=== PATIENT | male | born 1975 | race Caucasian/White ===

== ENCOUNTER 2020-01-10 18:56 | Outpatient (CLI) | payer OTHER, SELFPAY ==
--- NOTE | ~2020-01-10 | XR_ITS ---
EXAMINATION: XR knee LT min 4V DATE: 01/10/2020 19:19 INDICATION: Left knee pain TECHNIQUE: Four views of the left knee were obtained. COMPARISON: None. FINDINGS: Alignment is normal. No fracture or osteochondral lesion. There is mild tricompartmental os teoarthritis characterized by tiny marginal osteophytes. No joint effusion/synovitis. Soft tissues a re unremarkable. IMPRESSION: 1. No acute osseous abnormality. Reviewed, dictated and finalized at location A.
--- NOTE | ~2020-01-10 | XR_ITS ---
EXAMINATION: XR knee RT min 4V DATE: 01/10/2020 19:20 INDICATION: Right knee pain TECHNIQUE: Four views of the right knee were obtained. COMPARISON: None. FINDINGS: Alignment is normal. No fracture or osteochondral lesion. There is mild tricompartmental os teoarthritis characterized by tiny marginal osteophytes. No joint effusion/synovitis. Soft tissues a re unremarkable. IMPRESSION: 1. No acute osseous abnormality. Reviewed, dictated and finalized at location A.
== END 2020-01-10 18:57 | disposition home or self-care (01) ==
PROVIDERS: PCP Family Medicine; Visit Provider Physician Assistant Medical
DX: M25.562 Pain in left knee (principal); M25.561 Pain in right knee
CPT/HCPCS: 73564

== ENCOUNTER → 2020-04-05 09:55 | Outpatient (CLI) | payer OTHER, SELFPAY ==
--- NOTE | ~2020-04-05 | MR_ITS ---
. EXAMINATION: MR lumbar spine wo con DATE: 04/05/2020 10:33 INDICATION: Lumbar radiculopathy. Low back pain. TECHNIQUE: Magnetic resonance imaging (MRI) of the lumbar spine was performed without intravenous con trast. Sequences included sagittal T2-weighted FSE, sagittal T2-weighted FS FSE, sagittal T1-weighted FSE, and axial T2-weighted FSE. COMPARISON: Lumbar spine radiographs 09/29/2007 FINDINGS: Bone alignment is normal. Vertebral body heights are normal. There is severely decreased di sc height at L5-S1. The distal spinal cord signal intensity is normal. The conus medullaris is at L1. The following disc levels are specifically discussed: L1-L2: There is a left foraminal protrusion. There is mild bilateral facet joint osteoarthritis. Ther e is mild left neural foraminal stenosis. There is no central canal stenosis. L2-L3: The disc is mildly bulging. There is mild bilateral facet joint osteoarthritis. There is mild bilateral neural foraminal stenosis. There is no central canal stenosis. L3-L4: The disc is mildly bulging. There is moderate bilateral facet joint osteoarthritis. There is m ild bilateral neural foraminal stenosis. There is no central canal stenosis. L4-L5: The disc is bulging with superimposed right central extrusion. There is mild bilateral facet j oint osteoarthritis. There is mild bilateral neural foraminal stenosis. There is mild central canal s tenosis. L5-S1: The disc is bulging and has an annular fissure. There is mild right facet joint osteoarthritis . There is mild bilateral neural foraminal stenosis. There is mild central canal stenosis. IMPRESSION: 1. Severe lower lumbar spondylosis. Reviewed, dictated and finalized at location A.
== END ==
PROVIDERS: PCP Family Medicine; Visit Provider Nurse Practitioner Adult Health
DX: M54.16 Radiculopathy, lumbar region (principal); M47.816 Spondylosis without myelopathy or radiculopathy, lumbar region
CPT/HCPCS: 72148

== ENCOUNTER 2024-01-02 12:18 | Emergency (ER) | payer OTHER, SELFPAY ==
[2024-01-02] VITALS (13 sets, daily range): BP systolic 114–136; BP diastolic 54–88; PULSE 61–78; RESP 12–23; TEMP 36.7; O2SAT 93–100
--- NOTE | ~2024-01-02 | XR_ITS ---
EXAMINATION: XR chest 2V DATE: 01/02/2024 12:44 INDICATION: Chest pain, soreness and 2 weeks of fluttering TECHNIQUE: PA and lateral views of the chest were obtained. COMPARISON: None FINDINGS: The lungs are clear with no focal airspace opacities, pulmonary edema, pleural effusion or pneumothor ax. The cardiomediastinal silhouette is normal. Mild thoracic spondylosis. IMPRESSION: 1. No acute cardiopulmonary disease. Reviewed, dictated and finalized at location A.
--- NOTE | 2024-01-02 12:24 | ECG_ITS ---
Test Date: 2024-01-02 12:27:02 Measurements Intervals [place] Rate: 74 P: 60 [place]: 146 QRS: 1 QRSD: 84 T: 37 QT: 341 QTc: 379 Interpretive Statements SINUS RHYTHM WITHIN NORMAL LIMITS No previous ECG available for comparison Electronically Signed On 01-02-2024 15:29:22 CDT by Harley Jeronimo M.D.
[2024-01-02 12:47] LABS: Basophils Percent Auto 0.3 % (0.2-1.2); Eosinophils Absolute Auto 0.1 K/mm3 (0-0.3); Eosinophils Percent Auto 0.6 % (0-4.4); Hematocrit 46.7 % (42.0-52.0); Hemoglobin 16.5 g/dL (14.0-18.0); Immature Granulocyte Absolute 0.03 K/mm3 (0.00-0.031); Immature Granulocyte Percent A 0.3 % (0-0.5); Lymphocytes Absolute Auto 1.59 K/mm3 (0.9-3.2); Lymphocytes Percent Auto 17.5 % (18.3-44.2); Mean Corpuscular HGB Conc 35.3 g/dl (32-36); Mean Corpuscular Hemoglobin 31.7 pg (26-34); Mean Corpuscular Volume 89.6 fl (80-100); Monocytes Absolute Auto 0.7 K/mm3 (0.1-0.6); Monocytes Percent Auto 7.6 % (2.6-8.5); Neutrophils Absolute Auto 6.7 K/mm3 (1.3-6.7); Neutrophils Percent Auto 73.7 % (45.5-73.1); Platelet Count Result 240 k/mm3 (150-375); Red Blood Count 5.21 M/mm3 (4.6-6.20); Red Cell Distribution Width 12.2 % (11.5-14.5); White Blood Count 9.1 K/mm3 (4.5-10.0)
[2024-01-02] MEDS: ASPIRIN 81 MG CHEWABLE TABLET 324 MG PO (12:52)
[2024-01-02 13:01] LABS: Prothrombin Time 13.4 Seconds (11.1-14.7)
[2024-01-02 13:10] LABS: Alanine Aminotransferase 45 U/L (6-50); Albumin Level 4.9 g/dL (3.5-5.1); Alkaline Phosphatase 61 U/L (38-126); Anion Gap 10 mmol/L (4-12); Aspartate Amino Transferase 37 U/L (17-59); Bilirubin,Total 1.2 mg/dL (0.2-1.3); Blood Urea Nitrogen 19 mg/dL (9-20); Calcium 9.7 mg/dL (8.4-10.2); Carbon Dioxide 27 mmol/L (22-30); Chloride 102 mmol/L (98-107); Estimated CRCL calculation 69 ml/min; Estimated Glomerular Filt Rate 58; Glucose 88 mg/dL (65-110); Lipase 87 U/L (23-300); Potassium 4.1 mmol/L (3.4-5.0); Sodium 139 mmol/L (137-145)
[2024-01-02 13:14] LABS: Troponin I < 0.012 ng/mL (0.000-0.034)
--- NOTE | 2024-01-02 14:08 | ED.CHESTPAIN ---
HPI - Chest Pain General Chief Complaint: Chest Pain Stated Complaint: chest pain Time Seen by Provider: 01/02/24 12:55 History of Present Illness HPI narrative: 48-year-old male presents emergency department for evaluation of intermittent heart palpitations. Patient states over the course of the last 10 years he has been having intermittent heart palpitations that had typically been infrequent. Patient states he does have a high stress job, and did notice symptoms started after having a stressful vacation. Patient states over the course of the last 2 weeks he has had intermittent heart palpitations. Patient describes them as extra beat thanks return to normal that he has another extra palpitation. Denies any associated lightheadedness dizziness. Patient denies any sustained heart palpitations. Patient states he drinks very little caffeine and today. Patient states he does not drink alcohol. Patient denies any energy drinks or stimulants. Patient does take a protein drink after working out but states this is not caffeinated. Patient does state he works out frequently and denies any chest pain with exertion. Related Data Home Medications Medication Instructions Recorded Confirmed No Home Medications 08/15/19 01/16/20 Allergies Allergy/AdvReac Type Severity Reaction Status Date / Time No Known Allergies Allergy Verified 01/02/24 12:49 Review of Systems Review of Systems: All systems reviewed & are unremarkable except as noted in HPI and below PMFSH Family History Family History (Updated 05/23/18 @ 09:39 by DOCTOR UNKNOWN) Father Diabetes mellitus Hypertension Family history of elevated blood lipids Mother Hypertension Family history of elevated blood lipids Social History Social History Smoking status: Never smoker Alcohol intake: never Exam Narrative: APPEARANCE: Well appearing, no pain, no distress, well-nourished. HEAD: normocephalic, atraumatic. EYES: PERRLA/EOMI, conjunctivae clear. NOSE: Normal no drainage EARS:TMS clear with good light reflex. THROAT: Pharynx clear, no exudate. NECK: Supple. No adenopathy, no masses. RESPIRATORY: Airway patent, respirations nonlabored. Clear to auscultation bilaterally, no rales, rhonchi, wheezing. CARDIOVASCULAR: Regular rate and rhythm without murmurs rubs or gallops. ABDOMINAL: Soft, nontender, nondistended, normal bowel sounds MUSCULOSKELETAL: Moves all extremities. Strength/ROM intact, No edema, No calf tenderness. NEURO: Alert. Cranial nerves II through XII intact. Grossly intact SKIN: Warm, dry. Normal Color Course Course Emergency Course: Patient was updated results of the workup patient was comfortable with the plan for discharge and close follow-up Vital Signs Vital signs: Vital Signs Temperature 98.0 F 01/02/24 12:32 Pulse Rate 75 01/02/24 12:32 Respiratory Rate 18 01/02/24 12:32 Blood Pressure 128/81 01/02/24 12:32 Pulse Oximetry 99 01/02/24 12:32 Oxygen Delivery Room Air 01/02/24 12:32 Temperature 98.0 F 01/02/24 12:32 Pulse Rate 72 01/02/24 17:09 Respiratory Rate 19 01/02/24 17:09 Blood Pressure 115/80 01/02/24 17:09 Pulse Oximetry 100 01/02/24 17:09 Oxygen Delivery Room Air 01/02/24 12:48 MDM - Chest Pain MDM Narrative Medical decision making narrative: 48-year-old male present to the emergency department for evaluation for intermittent heart palpitations. EKG showed normal sinus rhythm, patient had no significant arrhythmias while in the emergency department. Patient is afebrile with no leukocytosis and a stable hemoglobin. Patient INR was 1.0. Patient had no acute abnormalities on his CMP, patient had negative serial troponins. TSH was not elevated and Mag was normal. Chest x-ray shows no acute cardiopulmonary abnormality. Suspect patient is having short runs AFib verses PVCs. Patient does have follow up scheduled with his primary care physician tomorrow. Kathie
--- NOTE | 2024-01-02 14:33 | PC.NURSE ---
called lab. aware of add on mag and TSH.
--- NOTE | 2024-01-02 14:38 | PC.NURSE ---
Lab made aware of TSH add on.
[2024-01-02 15:32] LABS: Magnesium 1.9 mg/dL (1.6-2.3)
--- NOTE | 2024-01-02 15:53 | ECG_ITS ---
Test Date: 2024-01-02 15:53:04 Measurements Intervals [place] Rate: 59 P: 59 MS: 153 QRS: 12 QRSD: 93 T: 22 QT: 385 QTc: 383 Interpretive Statements SINUS BRADYCARDIA Compared to ECG 01/02/2024 12:27:02 NO SIGNIFICANT CHANGES Electronically Signed On 01-03-2024 11:41:19 CDT by Moses Duke M.D.
[2024-01-02 16:26] LABS: Troponin I < 0.012 ng/mL (0.000-0.034)
== END 2024-01-02 17:11 | disposition home or self-care (01) ==
PROVIDERS: Emergency Provider Emergency Medicine; PCP Student in an Organized Health Care Education/Training Program
DX: R00.2 Palpitations (principal)
CPT/HCPCS: 36415; 71046; 80053; 83690; 83735; 84443; 84484; 85025; 85610; 85730; 93005; 99284; A9270